=== PATIENT | male | born 1980 | race Caucasian/White ===

== ENCOUNTER 2023-01-16 06:17 | Day surgery (SDC) | payer BC, SELFPAY ==
[2023-01-16] VITALS (7 sets, daily range): BP systolic 115–140; BP diastolic 78–103; PULSE 66–79; RESP 14–16; TEMP 36.3–37.1; O2SAT 95–97; BMI 31.0
[2023-01-16] MEDS: LACTATED RINGERS 1000 ML 1,000 ML 100 ML IV (06:45)
[2023-01-16] MEDS: SODIUM CHLORIDE 0.9 % (FLUSH) 10 ML SYRINGE IVF (06:45)
[2023-01-16] MEDS: CEFAZOLIN 2 GM INJ IVP (07:30)
--- NOTE | 2023-01-16 07:30 | CRLHL7_ITS ---
For Patients: As a result of the Cures Act, medical imaging exams and procedure reports are released immediately into your electronic medical record. You may view this report before your referring provider. If you have questions, please contact your health care provider. Indication: ORIF METATARSAL Technique: Multiple fluoroscopic images of the right midfoot. Fluoroscopic time 46.9 seconds. IMPRESSION: Fluoroscopic guidance for open reduction internal fixation proximal 5th metatarsal fracture. Dictated by Beto Mendoza MD @ 01/16/2023 9:49:50 AM (Electronically Signed)
[2023-01-16] MEDS: BUPIVACAINE 0.5% 30 ML INJECTION (07:33)
--- NOTE | 2023-01-16 09:33 | PM.PROC ---
Procedure Note Date Seen: 01/16/23 Date of procedure: 01/16/23 Will [facility] bill your pro fee for this procedure?: No Pre-op diagnosis: Fifth metatarsal base fracture nonunion right Post-op diagnosis: same Procedure: Repair of 5th metatarsal base fracture nonunion right Procedure Description: Hemostasis: Ankle tourniquet at 250 mm Hg Materials: Arthrex hook plate x1, 2.4 mm nonlocking screws x2 and 2.4 mm locking screws x2 Complications: None apparent Indication for surgery: Patient seen in clinic for nonhealing 5th metatarsal base fracture. CT confirmed nonhealing. He has exhausted conservative efforts would like to proceed with surgical care. I reviewed the procedure, recovery, expectations and potential complications. These include but are not limited to: Poor wound healing, infection, hardware irritation, nerve injury, continued pain, continued nonunion, potential need for future surgery, complex regional pain syndrome, deep venous thrombosis, pulmonary embolism possible . All questions answered and written consent was obtained. Site was marked. Procedure in detail: Patient brought the operating room placed supine position on operating table. IV sedation was initiated local anesthetic injected into the right foot. He was then prepped and draped in a sterile fashion. Standard time-out protocol followed. The right foot was then exsanguinated the tourniquet inflated. Linear incision was made over the 5th metatarsal base. Incision was carried down through skin subcutaneous tissues. Nonunion site was identified and the periosteum reflected away from this area. Very little peroneus brevis tendon was elevated at this location. Nonunion site was identified and all nonviable bone removed with a curette and drill. Healthy bleeding margins of bone were achieved. Wound was thoroughly irrigated normal sterile saline. Augment was injected into the void and additional cancellous allograft croutons were packed into the void after being mixed with additional augment graft. Periosteum was repaired over the nonunion site. Once packed the plate was applied and tamped into place. C-arm confirmed position. Nonlocking cortical screw was placed in the distal slotted screw hole and eccentrically drilled to achieve additional compression. Utilizing C-arm drill hole was placed the base of 5th metatarsal angled across the nonunion site into the distal medial metatarsal. A nonlocking cortical screw placed which further anchor the plate to bone. Two additional locking screws were placed distally. Multiple C-arm images confirmed excellent position of the plate. Subcutaneous tissues were reapproximated with 3-0 Vicryl and 4-0 Monocryl. Skin was closed with 4-0 Prolene. Sterile dressing was applied. Tourniquet was released and normal capillary fill time returned all digits. Was placed in a cam boot. He was transferred from OR to PACU with vital signs stable and vascular status intact. He will be discharged per Anesthesia. He is given written and verbal postop instructions. He is nonweightbearing with Cam boot and crutches. He will follow up in clinic next week. He is given oxycodone for pain. Anesthesia: MAC and local Surgeon: Jin Flores DPM FACFAS Estimated blood loss (mL): 2 Condition: stable Disposition: same day
--- NOTE | 2023-01-16 10:51 | W.ANESCHARGE ---
Anesthesia Charges Start Date/Time Anesthesia Start Date: 01/16/23 Anesthesia Start Time: 07:28 Stop Date/Time Anesthesia Stop Date: 01/16/23 Anesthesia Stop Time: 09:17
--- NOTE | 2023-01-16 11:26 | W.ANESCHARGE ---
Anesthesia Charges Start Date/Time Anesthesia Start Date: 01/16/23 Anesthesia Start Time: 07:28 Stop Date/Time Anesthesia Stop Date: 01/16/23 Anesthesia Stop Time: 09:17
== END 2023-01-16 10:30 | disposition home or self-care (01) ==
PROVIDERS: PCP Family Medicine; Visit Provider Podiatrist
PROC: (CPT 28485; principal; 2023-01-16 07:30)
DX: S92.354A Nondisplaced fracture of fifth metatarsal bone, right foot, initial encounter for closed fracture (principal)
CPT/HCPCS: 28322; 01480; 73620; C1713; J0665; J0690; J1100; J1885; J2250; J2405; J2704; J3010; J7120